=== PATIENT | female | born 1995 | race Caucasian/White ===

== ENCOUNTER 2023-08-23 14:00 | Inpatient (IN) ==
[2023-08-23] MEDS ORDERED: OXYTOCIN 30 UNITS/NSS 30 UNITS/500 ML BAG IV PRN ×2 (14:42→23:09)
[2023-08-23] MEDS ORDERED: LIDOCAINE 1% LOCAL 20 ML VIAL INFIL PRN (14:42)
[2023-08-23] MEDS ORDERED: ePHEDrine sulfate 50 MG/ML AMP ONE (14:43)
[2023-08-23] MEDS ORDERED: fentaNYL citrate PF 100 MCG/2 ML VIAL ONE (14:43)
[2023-08-23] MEDS ORDERED: fentANYL 2 MCG/ML BUPIVacaine 0.125%-NSS 100ML BAG ONE (14:43)
[2023-08-23] MEDS ORDERED: SODIUM CHLORIDE 0.9% PF INJ 10 ML VIAL ONE (14:43)
[2023-08-23] MEDS ORDERED: LIDOCAINE 2%/EPINEPHRINE 1:200,000 20 ML PF ONE (14:44)
[2023-08-23] MEDS ORDERED: BUPIVACAINE 0.25% PF 30 ML VIAL ONE (14:44)
[2023-08-23] MEDS: LACTATED RINGER'S 1,000 ML IV PRN ×3 (14:48→21:14)
--- NOTE | 2023-08-23 14:48 | History & Physical Report ---
Date of Service August 23, 2023 Assessment & Plan (1) Supervision of normal in third trimester: (2) Hypothyroid in , antepartum: Plan Pt is a 28 yo at 40 WGA presenting to labor and delivery for labor. External FHT and external uterine monitors used; Category I tracing; moderate FHT variability. Blood type; O+, GBS negative Expectant management at this time, anticipate , may start oxytocin and rupture membranes later if necessary. Proceed with labor and plan for vaginal delivery. History of Present Illness Chief Complaint: Labor Primary Care Provider: Teddy Bailon MD Pt is a 28 y/o female currently at 40 WGA with an OVI of 08/22/2023 as determined by LMP who is here for labor. Her was complicated by hypothyroidism. + contractions; has not noticed movement but has been preoccupied by increasing contraction pains; - fluid loss; - bloody show. Pt states around 8 or 9 am this morning she started having increasing frequency and intensity contractions and now is requesting epidural. Excited for first baby. No questions at this time. Had regular appointments with OB. OB Labs: Hemoglobin 12.1 g/dL (11.7-15.5) 05/28/23 Hematocrit 36.5 % (35.0-45.0) 05/28/23 Mean Corpuscular Volume 93.1 fL (80.0-100.0) 01/09/23 Platelet Count 213 Thousand/uL (140-400) 01/09/23 Rapid Plasma Reagin NON-REACTIVE (NON-REACTIVE) 01/09/23 Hepatitis B Surface Antigen. 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; FOB negative--mln gbs neg--akh Allergies Allergy/AdvReac Type Severity Reaction Status Date / Time benzonatate Allergy Intermediate hives Verified 08/19/23 15:07 [From Zahraa Braun] Home Medications Medication Instructions Recorded Confirmed Type levothyroxine 50 mcg tablet 50 mcg PO DAILY #90 tabs 12/21/22 08/23/23 Rx vit no.[id number] PO 01/04/23 08/19/23 History [Classic ] Patient History Medical History Thyroid nodule Varicella vaccination Endometrial polyp D&C 2021 Hypothyroidism "BORDERLINE" History of COVID-19 10/2020>COLD SYMPTOMS WITH BODY ACHES *RESOLVED Surgical History S/P dilatation and curettage [place] teeth removed Family History Father Prostate cancer Grandmother Hypothyroidism Hypertension Grandfather Prostate cancer Mother Hypothyroidism Family history of uterine fibroid Uncle Hypothyroidism Mothers Aunt Hypothyroidism Mothers Other No family history of adverse response to anesthesia Denies family history of Ovarian cancer Myocardial infarction Breast cancer Colorectal cancer Social History Smoking Status: Never smoker Second Hand Exposure: No; Do You Dip or Chew Tobacco: No; Hx Alcohol Use: Yes Alcohol type: beer Alcohol Intake Frequency: Monthly or Less Hx Substance Use: No Preferred Language: Yi Communication Ability: Effective Visual Impairment: No Limitations Hearing Ability: Normal Traffic Control Specialist Required: No Beliefs That Will Affect Care: None marital status: marital status details: Jam Briones (31) [phone] Current Living Situation: Spouse Current Living Situation Comment: lives with spouse, dog current occupational status: employed current occupation: Residential Coordinator-[employer] How many Children do You have: 0 Other Information That Helps Us Care for You: No Feels Safe at Home: Yes Safety Concerns: Feels Safe At This Time Childhood Exposure to Second-Hand Smoke: No Diet: regular caffeine: Yes (coffee) during the past year weight has: remained stable Dental Care, Regularly: Yes Physical Activity Frequency: 1-2 Times per Week Seatbelt Use: always Sunscreen Use: Yes Assistive Devices: Glasses OB History N/A Review of Systems no fever, no chills and no sweats no dyspnea no difficulty breathing no chest pain and no palpitations no dysuria no headache(s) no changes in vision no breast pain Physical Exam Physical Exam: General: Alert, oriented. No acute distress. Uncomfortable. Cardiac: Regular rate and rhythm, no murmurs, gallops, or rubs. Respiratory: Clear to auscultation bilaterally a/p, no wheezes, rales, or rhonchi. No increased work of breathing. No respiratory distress. Abdomen: Gravid, Position: vertex Pelvic: Dilation 6 cm, Effacement 90%, Station -[address] Arrington. Lower extremities: No lower extremity edema or swelling. No deep calf pain. Jose's negative bilaterally. Results & Data Vital Signs (Past 12 Hours) Vital Signs Temp Pulse Resp BP 08/23/23 14:31 36.4 C L 08/23/23 14:20 76 124/78 08/23/23 14:11 20 Supervising Physician Co-Signing Physician Notes Resident Physician Supervision Note: I was present with Dr. Cheney during the history and exam. I discussed the case with the resident and agree with the findings and plan as documented in the note. Any exceptions or clarifications are listed here: [None] Documented By: Lorie Arrington MD, FACOG Resident Activity Tracking Resident Involvement: Resident Care Provided Care Provided: OB Delivery
[2023-08-23] MEDS ORDERED: ePHEDrine sulfate 50 MG/ML AMP IV PRN (15:11)
[2023-08-23] MEDS ORDERED: NALOXONE HCL 0.4 MG/1 ML VIAL/CARP IV PRN (15:11)
[2023-08-23] MEDS ORDERED: fentaNYL citrate PF 100 MCG/2 ML VIAL EPI STA (15:11)
[2023-08-23] MEDS ORDERED: diphenhydrAMINE 50 MG/ML VIAL IV PRN (15:11)
[2023-08-23] MEDS ORDERED: SODIUM CHLORIDE 0.9% PF INJ 10 ML VIAL EPI PRN (15:11)
[2023-08-23] MEDS ORDERED: LIDOCAINE 2%/EPINEPHRINE 1:200,000 20 ML PF EPI STA (15:11)
[2023-08-23] MEDS ORDERED: ROPIVACAINE 0.5% PF 5 MG/ML 20 ML VIAL EPI PRN (15:11)
[2023-08-23] MEDS ORDERED: LIDOCAINE 2% MPF LOCAL 5 ML VIAL EPI PRN (15:11)
[2023-08-23] MEDS ORDERED: NALBUPHINE HCL 5 MG in SYRINGE 0 ML IV PRN (15:11)
[2023-08-23] MEDS ORDERED: BUPIVACAINE 0.25% PF 30 ML VIAL EPI PRN (15:11)
[2023-08-23] MEDS ORDERED: SODIUM CHLORIDE 0.9% PF INJ 10 ML VIAL EPI STA (15:11)
[2023-08-23] MEDS ORDERED: BUPIVACAINE 0.25% PF 30 ML VIAL EPI STA (15:11)
[2023-08-23] MEDS ORDERED: fentANYL 2 MCG/ML BUPIVacaine 0.125%-NSS 100ML BAG EPI PRN (15:11)
[2023-08-23] MEDS ORDERED: fentaNYL citrate PF 100 MCG/2 ML VIAL EPI PRN (15:11)
[2023-08-23] MEDS ORDERED: NALOXONE HCL 1 MG in SODIUM CHLORIDE 0.9% 1,000 ML IV PRN (15:11)
--- NOTE | 2023-08-23 15:11 | Anesthesiology Consultation ---
Date of Service August 23, 2023 Assessment & Plan (1) Encounter for pre-operative examination: Chart Review Chart Review: Patient NOT seen in Pre Admission Testing and Acceptable Risk for Labor Epidural Consults Requested none History Height/Weight Height: 5 ft 6 in Weight: 88.904 kg Allergies Allergy/AdvReac Type Severity Reaction Status Date / Time benzonatate Allergy Intermediate hives Verified 08/19/23 15:07 [From Zahraa Braun] Medications Home Medications Medication Instructions Recorded Confirmed Last Taken levothyroxine 50 mcg tablet 50 mcg PO DAILY #90 tabs 12/21/22 08/23/23 08/23/23 vit no.[id number] PO 01/04/23 08/19/23 Unknown [Classic ] Active Medications Generic Name Dose Route Start Last Admin Trade Name Freq PRN Reason Stop Dose Admin Lactated Ringer's 1,000 mls @ 125 mls/hr 08/23/23 14:42 08/23/23 14:48 Lr IV 08/25/23 14:41 999 mls/hr .Q8H PRN Administration L&D Protocol Protocol Past Medical History Medical History Thyroid nodule Varicella vaccination Endometrial polyp D&C 2021 Hypothyroidism "BORDERLINE" History of COVID-19 10/2020>COLD SYMPTOMS WITH BODY ACHES *RESOLVED Past Family History Family History Father Prostate cancer Grandmother Hypothyroidism Hypertension Grandfather Prostate cancer Mother Hypothyroidism Family history of uterine fibroid Uncle Hypothyroidism Mothers Aunt Hypothyroidism Mothers Other No family history of adverse response to anesthesia Denies family history of Ovarian cancer Myocardial infarction Breast cancer Colorectal cancer Past Surgical History Surgical History S/P dilatation and curettage [place] teeth removed Social History Smoking Status: Never smoker Do You Dip or Chew Tobacco: No Hx Alcohol Use: Yes Alcohol type: beer alcohol intake frequency: a few times a month Hx Substance Use: No substance use type: does not use Physical Exam Vital Signs Last Vital Signs Temp 97.5 F L 08/23/23 14:31 Pulse 80 08/23/23 15:05 Resp 20 08/23/23 14:11 BP 124/78 08/23/23 14:20 Pulse Ox 100 08/23/23 15:05
[2023-08-23 15:28] LABS: Hematocrit (blood only) 39.2 % (37.0-47.0); Hemoglobin 13.3 g/dl (12.0-16.0); Mean Corpuscular Hemoglobin 31.6 pg (25.0-34.0); Mean Corpuscular Hgb Conc 33.9 g/dL (32.0-36.0); Mean Corpuscular Volume 93.1 fL (80.0-100.0); Mean Platelet Volume 9.5 fL (9.4-12.4); Platelet Count 159 K/uL (130-400); RDW Standard Deviation 44.5 fL (36.4-46.3); Red Blood Count 4.21 M/uL (4.20-5.40); White Blood Count 12.36 K/ul (4.8-10.8)
[2023-08-23] MEDS ORDERED: SODIUM CHLORIDE 0.65% NA SOLN 45 ML (OCEAN) PRN (17:30)
--- NOTE | 2023-08-23 22:39 | Delivery Summary ---
Vaginal Delivery Summary Date of Service August 23, 2023 Vaginal Delivery Summary and 2nd Degree LAC Spontaneous vaginal delivery the patient arrived in active labor requested epidural and then afterwards there was artificial rupture of membranes for clear fluid she was group B strep negative she progressed to fully dilated pushed baby in occiput anterior position delivery of the head mouth and then nares were suctioned there was no nuchal cord and fluid was clear gentle traction the baby no excessive force live vigorous male cord clamped and cut cord blood obtained Cord gases obtained placenta removed with traction IV Pitocin started there was a second-degree tear repaired with 3-0 Vicryl sponge and instrument counts correct estimated blood loss 250 mL MNPG Vaginal Delivery Charge Delivery Type Details: and 2nd Degree LAC
[2023-08-23 22:56] LABS: Base Excess Cord Venous Blood -7.7 mEq/L (-7.7-1.9); Cord Venous Blood HCO3 21 mmol/L (18.4-26.8); Cord Venous Blood PCO2 55 mmHg (30.4-57.2); Cord Venous Blood PO2 22 mmHg (14.1-43.3); Cord Venous Blood pH 7.19 (7.20-7.44); O2 Saturation Cord Venous Bld < 60.0 % (<68)
[2023-08-23] MEDS ORDERED: DIPHTHER/TETAN/PERTUS Vaccine (Tdap, Adol/Adult) 0.5mL IM ONE (23:09)
[2023-08-23] MEDS ORDERED: HYDROCORTISONE ACETATE 25 MG SUPP PR PRN (23:09)
[2023-08-23] MEDS ORDERED: IBUPROFEN 600 MG TAB PO ONE (23:12)
[2023-08-24] MEDS: IBUPROFEN 600 MG TAB PO PRN ×4 (00:13→19:52)
[2023-08-24] MEDS: ACETAMINOPHEN 325 MG TAB PO PRN ×2 (00:59→14:51)
[2023-08-24] MEDS ORDERED: Nursing to Pharmacy Communication SCH (01:30)
[2023-08-24] MEDS: LEVOTHYROXINE SODIUM 50 MCG TABLET PO SCH (04:56)
--- NOTE | 2023-08-24 06:38 | Obstetrical Progress Note ---
Date of Service <Cait Manuela DO Noni - Last Filed: 08/24/23 06:45> August 24, 2023 Assessment & Plan <Cait Roy DO Noni - Last Filed: 08/24/23 06:45> (1) care following vaginal delivery: Plan Feels well today. Voiding well. Not much oral intake or ambulating yet, but these will be her goals for today. Pain well controlled with tylenol + ibuprofen. Routine care; OOB, ambulation, diet progression as tolerated. Anticipate discharge 24-48 hours after , likely tomorrow am. After discharge will have 6 week follow-up with Dr. Arrington. <Lorie Arrington MD, FACOG - Last Filed: 08/24/23 07:38> (1) care following vaginal delivery: Subjective <Cait Manuela DO Noni - Last Filed: 08/24/23 06:45> Pt is a 28 y/o female who is PPD#1 following at 40 weeks. Pt states that today she is feeling well. She states she does not have much bleeding at this point but does get occasional gushes and that she is very crampy today. She states she had some nausea with delivery so has not eaten much since then but the solids she had she has been able to keep down without nausea or vomiting. She has not been up much yet since the delivery since it was late in the evening around 10 pm. She is breast feeding. No questions or further complaints at this time. Constitutional: no fever, no chills or no sweats Respiratory: no dyspnea Cardiovascular: no chest pain or no palpitations Breast: no breast pain Genitourinary (female): no dysuria Neurologic: no headache(s) no changes in vision Physical Exam <Cait Cheney DO - Last Filed: 08/24/23 06:45> General: Alert, oriented. No acute distress. Cardiac: Regular rate and rhythm, no murmurs, rubs, or gallops. Respiratory: Clear to auscultation bilaterally, no wheezes/rales/rhonchi. No increased work of breathing. Symmetrical chest rise. No respiratory distress. Abdomen: Soft, nontender, nondistended. Bowel sounds present. Uterus: Uterine fundus firm, palpable below the umbilicus. Lower extremities: No lower extremity edema or swelling. No deep calf pain. Results & Data <Cait Cheney, DO - Last Filed: 08/24/23 06:45> Vital Signs (Past 12 Hours) Vital Signs Temp Pulse Pulse Resp BP BP Pulse Ox 08/24/23 04:49 36.8 C 96 H 18 114/64 98 08/24/23 00:49 36.8 C 88 20 132/71 98 08/24/23 00:46 98 H 132/71 08/24/23 00:40 98 H 18 132/71 08/24/23 00:31 101 H 122/59 L 08/24/23 00:16 102 H 132/63 08/24/23 00:10 102 H 18 132/63 08/24/23 00:01 115 H 144/71 H 08/23/23 23:46 121 H 127/68 08/23/23 23:40 102 H 18 132/63 08/23/23 23:31 125 H 128/72 08/23/23 23:25 125 H 18 128/72 08/23/23 23:16 105 H 121/64 08/23/23 23:10 105 H 16 121/64 08/23/23 23:05 95 H 119/61 08/23/23 22:55 105 H 20 121/64 08/23/23 22:43 114 H 170/128 H 08/23/23 22:40 105 H 20 121/64 08/23/23 22:36 102 H 87 L 08/23/23 22:32 98 H 97 08/23/23 22:27 96 H 100 08/23/23 22:23 116 H 123/78 08/23/23 22:22 113 H 97 08/23/23 22:21 113 H 81 L 08/23/23 22:17 127 H 95 08/23/23 22:15 109 H 84 L 08/23/23 22:12 116 H 96 08/23/23 22:10 109 H 88 L 08/23/23 22:07 97 08/23/23 22:07 101 H 08/23/23 22:07 102 H 131/61 08/23/23 22:02 119 H 98 08/23/23 21:57 142 H 98 08/23/23 21:52 100 08/23/23 21:52 103 H 08/23/23 21:52 106 H 126/70 82 L 08/23/23 21:47 108 H 100 08/23/23 21:42 102 H 100 08/23/23 21:37 100 08/23/23 21:37 105 H 08/23/23 21:37 107 H 127/76 08/23/23 21:32 127 H 99 08/23/23 21:27 133 H 88 L 08/23/23 21:22 126 H 100 08/23/23 21:17 160 H 97 08/23/23 21:12 105 H 100 08/23/23 21:09 117 H 87 L 08/23/23 21:07 100 H 147/61 H 92 08/23/23 21:02 148 H 99 08/23/23 21:00 22 08/23/23 21:00 22 08/23/23 20:57 113 H 79 L 08/23/23 20:52 125 H 175/71 H 99 08/23/23 20:47 112 H 99 08/23/23 20:42 128 H 99 08/23/23 20:39 109 H 148/67 H 08/23/23 20:37 120 H 100 08/23/23 20:32 110 H 96 08/23/23 20:30 20 08/23/23 20:30 20 08/23/23 20:27 106 H 100 08/23/23 20:22 99 08/23/23 20:22 101 H 08/23/23 20:22 102 H 111/65 08/23/23 20:17 97 H 99 08/23/23 20:12 96 H 100 08/23/23 20:08 85 114/59 L 08/23/23 20:07 88 99 08/23/23 20:02 97 H 100 08/23/23 20:00 20 08/23/23 20:00 20 08/23/23 19:57 91 H 100 08/23/23 19:52 100 08/23/23 19:52 87 08/23/23 19:52 78 119/66 08/23/23 19:47 93 H 98 08/23/23 19:42 87 100 08/23/23 19:38 81 119/63 08/23/23 19:37 89 100 08/23/23 19:32 81 100 08/23/23 19:27 82 99 08/23/23 19:23 83 119/68 08/23/23 19:22 80 100 08/23/23 19:17 82 96 08/23/23 19:12 78 100 08/23/23 19:09 98 H 102/59 L 08/23/23 19:07 92 H 93 08/23/23 19:02 36.9 C 18 08/23/23 19:02 08/23/23 19:02 101 H 98 08/23/23 19:00 20 08/23/23 19:00 20 08/23/23 18:57 91 H 99 08/23/23 18:52 100 08/23/23 18:52 88 08/23/23 18:52 85 119/66 08/23/23 18:47 91 H 100 08/23/23 18:42 106 H 100 O2 Del Method 08/24/23 04:49 Room Air 08/24/23 00:49 Room Air 08/24/23 00:46 08/24/23 00:40 08/24/23 00:31 08/24/23 00:16 08/24/23 00:10 08/24/23 00:01 08/23/23 23:46 08/23/23 23:40 08/23/23 23:31 08/23/23 23:25 08/23/23 23:16 08/23/23 23:10 08/23/23 23:05 08/23/23 22:55 08/23/23 22:43 08/23/23 22:40 08/23/23 22:36 08/23/23 22:32 08/23/23 22:27 08/23/23 22:23 08/23/23 22:22 08/23/23 22:21 08/23/23 22:17 08/23/23 22:15 08/23/23 22:12 08/23/23 22:10 08/23/23 22:07 08/23/23 22:07 08/23/23 22:07 08/23/23 22:02 08/23/23 21:57 08/23/23 21:52 08/23/23 21:52 08/23/23 21:52 08/23/23 21:47 08/23/23 21:42 08/23/23 21:37 08/23/23 21:37 08/23/23 21:37 08/23/23 21:32 08/23/23 21:27 08/23/23 21:22 08/23/23 21:17 08/23/23 21:12 08/23/23 21:09 08/23/23 21:07 08/23/23 21:02 08/23/23 21:00 08/23/23 21:00 08/23/23 20:57 08/23/23 20:52 08/23/23 20:47 08/23/23 20:42 08/23/23 20:39 08/23/23 20:37 08/23/23 20:32 08/23/23 20:30 08/23/23 20:30 08/23/23 20:27 08/23/23 20:22 08/23/23 20:22 08/23/23 20:22 08/23/23 20:17 08/23/23 20:12 08/23/23 20:08 08/23/23 20:07 08/23/23 20:02 08/23/23 20:00 08/23/23 20:00 08/23/23 19:57 08/23/23 19:52 08/23/23 19:52 08/23/23 19:52 08/23/23 19:47 08/23/23 19:42 08/23/23 19:38 08/23/23 19:37 08/23/23 19:32 08/23/23 19:27 08/23/23 19:23 08/23/23 19:22 08/23/23 19:17 08/23/23 19:12 08/23/23 19:09 08/23/23 19:07 08/23/23 19:02 08/23/23 19:02 Room Air 08/23/23 19:02 08/23/23 19:00 08/23/23 19:00 08/23/23 18:57 08/23/23 18:52 08/23/23 18:52 08/23/23 18:52 08/23/23 18:47 08/23/23 18:42 Supervising Physician <Lorie Arrington MD, FACOG - Last Filed: 08/24/23 07:38> Co-Signing Physician Notes Resident Physician Supervision Note: I was present with Dr. Cheney during the history and exam. I discussed the case with the resident and agree with the findings and plan as documented in the note. Any exceptions or clarifications are listed here: [None] Documented By: Lorie Arrington MD, FACOG Resident Activity Tracking <Cait Cheney DO - Last Filed: 08/24/23 06:45> Resident Involvement: Resident Care Provided Care Provided: OB Delivery
[2023-08-24 06:41] LABS: Hematocrit (blood only) 34.6 % (37.0-47.0); Hemoglobin 11.7 g/dl (12.0-16.0); Mean Corpuscular Hemoglobin 31.5 pg (25.0-34.0); Mean Corpuscular Hgb Conc 33.8 g/dL (32.0-36.0); Mean Platelet Volume 9.8 fL (9.4-12.4); Platelet Count 164 K/uL (130-400); RDW Coefficient of Variation 13.2 % (11.5-14.5); RDW Standard Deviation 44.9 fL (36.4-46.3); Red Blood Count 3.72 M/uL (4.20-5.40)
--- NOTE | 2023-08-24 06:46 | Anesthesia Procedure Note ---
Date of Service August 24, 2023 Anesthesia Post Epidural Note Vital Signs Vital Signs: Temp Pulse Resp BP Pulse Ox O2 Del Method 98.2 F 96 H 18 114/64 98 Room Air 08/24/23 04:49 08/24/23 04:49 08/24/23 04:49 08/24/23 04:49 08/24/23 04:49 08/24/23 04:49 Pain Intensity Lower Back: Pain Intensity: 3 Bilateral Abdomen: Pain Intensity: 2 Notes Mental Status: alert / awake / arousable and participated in evaluation Nausea / Vomiting: adequately controlled Pain: adequately controlled Airway Patency, RR, SpO2: stable & adequate BP & HR: stable & adequate Hydration State: stable & adequate Neuraxial Anesthesia: was administered and sensory block is resolving Anesthetic Complications: no major complications apparent and Pt Satisfied with anesthetic care Epidural: Removed without complications and With tip intact
[2023-08-24] MEDS: DOCUSATE SODIUM 100 MG CAP PO SCH ×2 (07:27→19:52)
[2023-08-24] MEDS ORDERED: PRENATAL VITAMIN 1 TAB PO SCH ×2 (08:00→20:00)
[2023-08-24] MEDS: guaiFENesin 600 MG TABCR PO SCH ×2 (09:35→19:51)
[2023-08-24] MEDS ORDERED: COUGH DROP (SUGAR FREE) LOZ 24 LOZ/1 BOX BUCCAL ONE (13:48)
[2023-08-24] MEDS ORDERED: bisacodyL 5 MG TABEC PO SCH (20:00)
[2023-08-25] MEDS: IBUPROFEN 600 MG TAB PO PRN ×2 (00:18→04:59)
[2023-08-25] MEDS: LEVOTHYROXINE SODIUM 50 MCG TABLET PO SCH (05:01)
[2023-08-25 06:34] LABS: Hematocrit (blood only) 34.8 % (37.0-47.0); Hemoglobin 11.7 g/dl (12.0-16.0)
[2023-08-25] MEDS: ACETAMINOPHEN 325 MG TAB PO PRN (07:52)
[2023-08-25] MEDS: DOCUSATE SODIUM 100 MG CAP PO SCH (07:52)
[2023-08-25] MEDS: guaiFENesin 600 MG TABCR PO SCH (07:53)
--- NOTE | 2023-08-25 07:56 | Labor Progress Brief Note ---
Date of Service August 25, 2023 Subjective Review of Systems All systems reviewed & are unremarkable except as noted in HPI & below Assessment & Plan (1) care following vaginal delivery: Plan: PPD#2 doing well. ok. Desires DC home. Reviewed instructions. Followup 6w in office. Admission and Anticipated Discharge Date Admission Date: August 23, 2023 Physical Exam Constitutional: WD/WN, vitals as above no acute distress Respiratory: normal respiratory effort Cardiovascular: Rate/Rhythm: regular rate and regular rhythm Gastrointestinal (Abdomen): Inspection/Auscultation: abdomen normal to inspection; abdomen not distended Percussion/Palpation: abdomen soft Genitourinary: OB Exam Abdomen: + fundal height Fundus: + firm; not tender Results & Data Vital Signs (Past 12 Hours) Vital Signs Temp Pulse Resp BP Pulse Ox O2 Del Method 08/25/23 00:15 36.8 C 88 20 113/76 98 Room Air Coding Level of Care Code None Diagnoses care following vaginal delivery Z39.2
[2023-08-25] MEDS ORDERED: bisacodyL 10 MG SUPP PR PRN (23:09)
== END 2023-08-25 12:00 | disposition home or self-care (01) | DRG 807 ==
LOC: OPB 14:00 → 4S1 14:02 → 4E2 08-24 01:16